=== PATIENT | female | born 1970 | race Caucasian/White ===

== ENCOUNTER 2022-03-27 13:14 | Emergency (ER) | payer BC, SELFPAY ==
--- NOTE | 2022-03-27 13:15 | ED.EAR ---
HPI - Ear Problem General Chief complaint: Ear Stated complaint: Left Side Face/Ear Pain Time Seen by Provider: 03/27/22 13:15 Source: patient Mode of arrival: ambulatory Limitations: no limitations History of Present Illness HPI Narrative: Karol is a 52-year-old female patient presenting to clinic today with complaints of left-sided facial pain/ ear pain that just began yesterday around noon. She denies any fever or chills. She reports that the pain is getting worse and pressure is developing in her ear pain Related Data Home Medications Medication Instructions Recorded Confirmed atorvastatin 40 mg tablet mg 03/27/22 olmesartan 40 tablet 03/27/22 mg-hydrochlorothiazide 25 mg tablet Allergies Allergy/AdvReac Type Severity Reaction Status Date / Time codeine Allergy Mild THROAT Verified 03/27/22 13:20 SWELLING hydrocodone Allergy Mild Itching Verified 03/27/22 13:20 Review of Systems Review of Systems: Pertinent positives per HPI. Patient denies any fever, chills, rash, headache, visual changes, dizziness, cough, shortness of breath, chest pain, palpitations, nausea, vomiting, diarrhea, constipation, abdominal pain, or any urinary issues. PMFSH Comments At the time of my signature, I reviewed and agree with the nursing past medical, surgical, social, and family history. There is no relevant family history pertinent to the patient complaint. Exam Narrative: General: Well-developed, well nourished, in no apparent distress Head: Normocephalic, atraumatic Eyes: Pupils equally round and reactive to light bilaterally, EOM intact, sclera and conjunctive clear, no discharge, lids normal Ears: TMs intact and clear, ear canals clear, no drainage, grossly hearing normal. Nose: Nares patent, no discharge, no inflammation, no sinus tenderness. Mouth: Oral pharynx without lesions or masses, good dentition, MMM. Neck: Supple, trachea midline, no enlargement of anterior or posterior cervical nodes, no thyroid masses or goiter palpable. left-sided submandibular gland swelling with tenderness to palpation. No redness, fluctuance or erythema noted. Cardio: Regular rate and rhythm, s1 and s2 normal, no murmur appreciated. Resp: Clear to auscultation bilaterally, no rhonchi, rales, wheezing or rubs Course Course Emergency Course: Portions of this record may have been created with voice recognition software. Level of Care: Express Care Visit Vital Signs Vital signs: Vital Signs Temperature 36.3 C L 03/27/22 13:24 Pulse Rate 72 03/27/22 13:24 Respiratory Rate 16 03/27/22 13:24 Blood Pressure 114/81 03/27/22 13:24 Pulse Oximetry 100 03/27/22 13:24 Oxygen Delivery Room Air 03/27/22 13:24 Temperature 36.3 C L 03/27/22 13:30 Pulse Rate 72 03/27/22 13:30 Respiratory Rate 16 03/27/22 13:30 Blood Pressure 114/81 03/27/22 13:30 Pulse Oximetry 100 03/27/22 13:30 Oxygen Delivery Room Air 03/27/22 13:30 Vital signs reviewed Medical Decision Making MDM Narrative Medical decision making narrative: At the time of visit patient is resting comfortably on the exam table. I suspect the patient has sialadenitis /submandibular swelling. Patient denies any fever or chills currently so I feel like this may be a blocked salivary gland. Supportive measures were discussed with the patient she voiced understanding of discharge instructions and agrees to treatment plan Differential Diagnosis Differential Diagnosis: Submandibular gland swelling, parotiditis, viral infection, bacterial infection Vital Signs Vital Signs: Vital Signs Temperature 36.3 C L 03/27/22 13:24 Pulse Rate 72 03/27/22 13:24 Respiratory Rate 16 03/27/22 13:24 Blood Pressure 114/81 03/27/22 13:24 Pulse Oximetry 100 03/27/22 13:24 Oxygen Delivery Room Air 03/27/22 13:24 Temperature 36.3 C L 03/27/22 13:30 Pulse Rate 72 03/27/22 13:30 Respiratory Rate 16 03/27/22 13:30 Blood
[2022-03-27 13:24] VITALS: BP 114/81; PULSE 72; RESP 16; TEMP 36.3; O2SAT 100
[2022-03-27 13:30] VITALS: BP 114/81; PULSE 72; RESP 16; TEMP 36.3; O2SAT 100
== END 2022-03-27 13:42 | disposition home or self-care (01) ==
PROVIDERS: Emergency Provider Nurse Practitioner Family; PCP Internal Medicine
DX: K11.20 Sialoadenitis, unspecified (principal); K11.1 Hypertrophy of salivary gland; I10 Essential (primary) hypertension; Z95.810 Presence of automatic (implantable) cardiac defibrillator
CPT/HCPCS: 99211; G0463